=== PATIENT | female | born 1955 | race Caucasian/White ===

== ENCOUNTER → 2020-12-26 | Emergency (ER) | payer MEDICARE ==
[~2020-12-26] VITALS: Ht 162.6 cm; Wt 74.5 kg
[~2020-12-26] MED LIST: ONDA8TAB6 PO; aspirin 81mg tab.chew PO ONE
[2020-12-26 10:14] LABS: RED CELL DISTRIBUTION WIDTH 14.2 % (11.5-14.5)
[2020-12-26 10:15] LABS: BASOPHILS # (AUTO) 0.1 X10'3 (0-0.2); BASOPHILS % (AUTO) 1.1 % (0-1); EOSINOPHILS # (AUTO) 0.3 X10'3 (0-0.9); EOSINOPHILS % (AUTO) 4.7 % (0-6); HEMATOCRIT 36.9 % (35.0-45.0); HEMOGLOBIN 12.2 g/dl (12.0-16.0); LYMPHOCYTES # (AUTO) 1.6 X10'3 (1.1-4.8); LYMPHOCYTES % (AUTO) 27.2 % (21-51); MEAN CORPUSCULAR HEMOGLOBIN 29.5 PG (27.0-31.0); MEAN CORPUSCULAR HGB CONC 33.1 g/dL (33.0-36.5); MEAN CORPUSCULAR VOLUME 89.3 FL (78-98); MEAN PLATELET VOLUME 8.9 FL (7.4-10.4); MONOCYTES # (AUTO) 0.6 X10'3 (0-0.9); MONOCYTES % (AUTO) 10.6 % (2-12); NEUTROPHILS # (AUTO) 3.4 X10'3 (1.8-7.7); NEUTROPHILS % (AUTO) 56.4 % (42-75); PLATELET COUNT 284 X10'3 (140-440); RED BLOOD COUNT 4.13 X10'6 (4.20-5.60)
[2020-12-26 10:25] LABS: ALANINE AMINOTRANSFERASE 28 U/L (12-78); ALBUMIN 4.1 G/DL (3.4-5.0); ALBUMIN/GLOBULIN RATIO 1.2 (1.1-1.5); ALKALINE PHOSPHATASE 72 IU/L (46-116); ANION GAP 11 (8-16); ASPARTATE AMINO TRANSFERASE 24 U/L (10-37); BILIRUBIN,TOTAL 0.4 MG/DL (0.1-1.0); BLOOD UREA NITROGEN 13 MG/DL (7-18); BUN/CREATININE RATIO 18.1 (6.6-38.0); CALCIUM 9.3 MG/DL (8.5-10.1); CHLORIDE 101 MMOL/L (99-107); CREATININE 0.72 MG/DL (0.40-0.90); GLUCOSE 91 MG/DL (70-104); POTASSIUM 4.2 MMOL/L (3.5-5.1); SODIUM 140 MMOL/L (135-145); TOTAL CARBON DIOXIDE 28.1 MMOL/L (24-32); TOTAL PROTEIN 7.6 G/DL (6.4-8.2); eGFR 81 ML/MIN
[2020-12-26 10:35] LABS: MAGNESIUM 2.1 MG/DL (1.5-2.4)
[2020-12-26 11:04] VITALS: BP 148/74
== END | disposition home or self-care (01) ==
LOC: ER 09:35
DX: I10 Essential (primary) hypertension (principal); Z86.73 Personal history of transient ischemic attack (TIA), and cerebral infarction without residual deficits; Z90.710 Acquired absence of both cervix and uterus; Z79.899 Other long term (current) drug therapy
CPT/HCPCS: 36415; 71045; 80053; 83735; 83880; 84484; 85025; 93005; 99285

== ENCOUNTER 2025-04-27 07:12 | Day surgery (SDC) | payer MEDICARE, OTHER ==
[2025-04-26 10:27] LABS: MEAN PLATELET VOLUME 8.8 FL (7.4-10.4); RED CELL DISTRIBUTION WIDTH 13.9 % (11.5-14.5)
[2025-04-26 10:35] LABS: CREATININE 0.58 MG/DL (0.40-0.90); TOTAL CARBON DIOXIDE 28.3 MMOL/L (24-32); eGFR > 90 ML/MIN
[2025-04-26 10:38] LABS: APTT 28 SECONDS (22-32); INR 1.0 INR
[2025-04-27] VITALS (10 sets, daily range): BP systolic 95–174; BP diastolic 42–101; PULSE 65–83; RESP 11–14; TEMP 98.2; O2SAT 95–99
[~2025-04-27] VITALS: Ht 165.1 cm; Wt 75.8 kg
[~2025-04-27 07:12] MED LIST changes: -aspirin 81mg tab.chew PO ONE
[2025-04-27] MEDS ORDERED: verapamil 2.5 mg/ml inj IV ONE (07:33)
[2025-04-27] MEDS ORDERED: fentaNYL/PF 50MCG/1 ML 2ML syringe ONE (07:33)
[2025-04-27] MEDS ORDERED: iohexol 350 MG/ML 50ML vial IV ONE ×2 (07:33→08:49)
[2025-04-27] MEDS ORDERED: midazolam 1 mg/ML 2ml injection ONE ×2 (07:33→08:48)
[2025-04-27] MEDS ORDERED: heparin 1,000unit/ml 10ml vial 10 ML ONE (07:33)
[2025-04-27] MEDS ORDERED: LIDOcaine 1% (10mg/ml) 2ml vial ONE (07:33)
[2025-04-27] MEDS ORDERED: nitroGLYCERIN 500mcg/5mL D5W 5 ML IV ONE (07:34)
[2025-04-27] MEDS ORDERED: LOSA1TAB36 PO (07:48)
[2025-04-27] MEDS ORDERED: LEVO100T78 PO (07:48)
[2025-04-27] MEDS ORDERED: ROSU20TA98 PO (07:48)
[2025-04-27] MEDS ORDERED: MAGN250C PO (07:51)
[2025-04-27] MEDS ORDERED: ASPI-1265 PO (07:51)
[2025-04-27] MEDS ORDERED: CHOL10006 PO (07:51)
--- NOTE | 2025-04-27 08:05 | ELECTROCARDIOGRAPH REPORT ---
[facility] Test Date: 2025-04-27 Test Time: 07:29:36 Pat Name: HANY CHIANG Department: SHORT STAY 1ST FLOOR Patient ID: [facility]-[id number] Room: Gender: F [employer]: BURAK : 1955 Requested By: WENDY DAVALOS Order Number: [id number] Reading MD: Dr. BOBBI Davalos Measurements Intervals Calvin Rate: 73 P: 75 AK: 157 QRS: 56 QRSD: 107 T: 93 QT: 412 QTc: 454 Interpretive Statements Sinus rhythm Nonspecific T abnormalities, lateral leads Baseline wander in lead(s) V3 Electronically Signed On 04-27-2025 19:16:[address] BOBBI Davalos Please click the below link to view image of tracing.
[2025-04-27] MEDS ORDERED: hydrALAZINE 20mg/ml inj. ONE (08:54)
[2025-04-27] MEDS ORDERED: normal saline 1000ml 1,000 ML IV SCH (09:50)
--- NOTE | 2025-04-27 10:24 | CARDIOLOGY REPORT ---
DATE OF SERVICE: 04/27/2025 DICTATING PHYSICIAN: BOBBI Rodríguez MD CARDIAC CATHETERIZATION GENDER: Female. AGE: 70 years. HEIGHT: 165 cm. WEIGHT: 75.8 kg BODY SURFACE AREA: 1.82 m2. INDICATIONS: The patient is a 70-year-old postmenopausal female with history of hypertension, hyperlipidemia, and nonobstructive CAD with exertional shortness of breath and fatigue. The patient was found to have apical and anterior reversible defect. After discussing risks, benefits, and alternative options, the patient prefers to proceed with definitive evaluation of the coronary angiography. Risks, benefits, and alternative options discussed, informed consent obtained. PROCEDURE TECHNIQUE: The patient underwent right heart catheterization from right antecubital approach, 6-Azerbaijani sheath. Post-procedure access site hemostasis secured with manual compression. The patient underwent left heart catheterization from right antecubital approach, 6-Azerbaijani sheath. Post-procedure access site hemostasis secured with right radial band. The patient tolerated the procedure well. COMPLICATIONS: None. PROCEDURES DONE: * Ultrasound-guided right radial artery visualization and access. * Right heart catheterization. * Left heart catheterization. * LVG. * Coronary cineangiography. * Conscious sedation 30 minutes. FINDINGS: HEMODYNAMICS: Aortic systolic 181, diastolic 39, mean 135 mmHg, LVDP of 21 mmHg. There is no significant gradient across the aortic valve. Right atrial mean 3 mmHg. RV 40/7 mmHg. PA 38/40 mmHg. Pulmonary capillary refill is 11 mmHg. Aortic oxygen saturation 91%. Pulmonary artery oxygen saturation of 74%. Cardiac output by thermodilution method is 7.78 L/min. Cardiac index was 4.26 L/min/m2. LEFT VENTRICULOGRAM: Overall, left ventricular systolic function normal with LV ejection fraction of 70%. CORONARY CINEANGIOGRAPHY: The left main coronary artery is a large caliber vessel arising from left main coronary artery and divides into 3 divisions, engaged with JL4 catheter with mild luminal irregularities. LAD is a medium caliber vessel arising at the trifurcation of the left main coronary artery and courses through the anterior interventricular groove and ends up by wrapping around the apex. Proximal LAD has 40-50% narrowing. Mid LAD has a 30% narrowing. Diagonal 1 is a small vessel. Diagonal 2 is 2.25 mm caliber with mild luminal irregularities. Ramus intermedius is a 2.75 mm caliber vessel with mild luminal irregularities. Circumflex artery is a medium caliber vessel arising at the trifurcation of the main coronary artery and courses through the left AV groove. OM 1 and 2 are 2 mm caliber with minimal luminal irregularities. Right coronary artery is a medium caliber dominant vessel arising at the right aortic sinus and courses through the right AV groove and ends at the posterior crux by dividing into PDA and a posterolateral branch. RCA ostium is a 40% narrowing. There is mild gradient across the RCA ostium. IMPRESSION: A 70-year-old female with LV ejection fraction of 70%. LVEDP of 21 mmHg with no gradient across the aortic valve. Pulmonary capillary refill measure of 11 mmHg. Left main normal. Proximal LAD 40-50%, mid LAD 30% narrowing. Circ ramus with minimal disease. Dominant RCA with ostial 40% narrowing. RECOMMENDATIONS: Recommend continued aggressive coronary risk factor modification namely, low-fat low cholesterol diet, maintaining ideal body weight, keeping LDL less than 70 mg, regular exercise program. BOBBI Rodríguez MD TID: [id number] RECEIPT: [id number] SULTANA/PANFILO cc: Samantha GUILLAUME
[2025-04-27] MEDS: normal saline 1000ml 1,000 ML IV ONE (11:59)
[2025-04-27 12:24] LABS: ISTAT HGB ART 10.9 g/dl (12.0-16.0); ISTAT HGB MIX 10.5 g/dl (12.0-16.0); ISTAT Hct ART 32 %PCV (35-45); ISTAT Hct MIX 31 %PCV (35-45); ISTAT O2 SATURATION ARTERIAL 91 % (95-98); ISTAT O2 SATURATION MIX VENOUS 74 % (60-80); ISTAT SOURCE BLNK
== END 2025-04-27 14:00 | disposition home or self-care (01) ==
LOC: SSTAY O 07:12
PROVIDERS: ATTEND Internal Medicine Cardiovascular Disease
DX: R94.39 Abnormal result of other cardiovascular function study (principal); I25.10 Atherosclerotic heart disease of native coronary artery without angina pectoris; I10 Essential (primary) hypertension; E78.5 Hyperlipidemia, unspecified; E03.9 Hypothyroidism, unspecified; K21.9 Gastro-esophageal reflux disease without esophagitis; Z79.890 Hormone replacement therapy; Z79.899 Other long term (current) drug therapy; Z90.49 Acquired absence of other specified parts of digestive tract; Z90.89 Acquired absence of other organs; Z90.710 Acquired absence of both cervix and uterus; Z98.890 Other specified postprocedural states; Z80.42 Family history of malignant neoplasm of prostate; Z80.51 Family history of malignant neoplasm of kidney; Z80.1 Family history of malignant neoplasm of trachea, bronchus and lung
CPT/HCPCS: 36415; 80048; 82803; 85014; 85025; 85610; 85730; 93005; 93460; 99152; 99153; A6258; A6402; C1725; C1751; C1894; J0360; J1200; J1644; J2003; J2250; J3010; J3490; J7030; Q9967; Z7610; 76937